=== PATIENT | male | born 1970 | race Caucasian/White ===

== ENCOUNTER 2016-10-02 04:01 | Emergency (ER) | payer SELFPAY ==
[~2016-10-02] VITALS: Ht 182.9 cm; Wt 84.1 kg
[2016-10-02 04:07] VITALS: BP 131/97; PULSE 103; RESP 18; O2SAT 96
--- NOTE | 2016-10-02 04:27 | ED.REPORT ---
HPI-Dyspnea / Wheezing Date of Service Oct 02, 2016 ED Provider: Henry Goldberg MD Patient is a 46 year old male who presents to the ED after he awoke from sleep with shortness of breath just prior to arrival. The patient states that he subsequently had a panic attack, due to the fact that he could not breathe. Patient reports associated substernal chest pain, which radiates to his back and neck. Patient rates his pain at 4/10 on arrival to the ED. He also reports myalgias, dizziness, diaphoresis, hot flashes, and chills. Patient states that he has generally felt unwell for the past day and that he slept more than usual. He reports a history of borderline hypertension but denies hyperlipidemia or diabetes mellitus. Nursing Notes Stated Complaint: SHORT OF BREATH Chief Complaint: Respiratory Complaints Nursing Notes Reviewed: Yes Allergies: Coded Allergies: No Known Allergies (Unverified , 10/02/16) General Time Seen by MD: 04:22 Chief Complaint Shortness of breath Hx Obtained From: Patient Arrived By: Walk-in Sudden in Onset?: No Onset Occurred: Just prior to arrival Symptom Duration: Since onset Location: : Substernal Quality: Painful Severity: Maximum: Pain level 4 out of 10 Past Medical History Past Medical History Reports: Hypertension (borderline), Denies: Diabetes mellitus, Hyperlipidemia Past Surgical History right shoulder surgery Reports: Back/neck surgery, Carpal tunnel Smoking History Never Smoker Social History Alcohol Use: "Social" Drug Use: THC Other Social History: Good social support, , Local resident Ambulatory Status Independent Review of Systems Review of Systems Note: + felt unwell Constitutional: Reports: Chills, Fever (hot flashes) Respiratory: Reports: Shortness of breath Cardiovascular: Reports: Chest pain Musculoskeletal: Reports: Back pain, Myalgia, Neck pain Skin: Reports Diaphoresis Complete sys rev & neg: except as marked. Neurologic: Reports: Dizziness Physical Exam Initial Vital Signs Vital Signs (First) Date Time Temp Pulse Resp B/P Pulse Ox O2 Delivery O2 Flow Rate FiO2 10/02/16 04:07 36.8 103 18 131/97 96 Room Air Initial VS: Reviewed, Vital signs abnormal Head / Eyes: Atraumatic, Normocephalic, PERRL ENT: Conjunctiva normal, No scleral icterus Abdomen / GI: Soft, Non-tender, No guarding, No rebound, No distention Extremities: Vascular intact, Neuro intact, No swelling, No tenderness Skin: Warm, Dry, No cyanosis Neurologic: Alert, Oriented, Nonfocal Psychiatric: Mood/affect normal, Behavior normal, Normal thought content General/Constitutional: Awake, Alert, No acute distress Neck: Supple, No JVD Respiratory / Chest: Breath sounds NL, Breath sounds = bilat, No respiratory distress, No rales, No rhonchi, No wheezing Cardiovascular: Heart rate NL, Regular rhythm, Heart sounds NL, No murmurs Interpretation & Diagnostics Lab Results Interpretation Result Diagram: 10/02/16 0425 10/02/16 0425 Test 10/02/16 04:25 White Blood Count 7.4th/mm3 (3.8-10.1) Red Blood Count 5.24mil/mm3 (4.40-5.80) Hemoglobin 15.3g/dL (13.8-17.2) Hematocrit 43.7% (41.0-50.0) Mean Corpuscular Volume 83.4fL (81-100) Mean Corpuscular Hemoglobin 29.2pg (27.0-35.0) Mean Corpuscular Hemoglobin Concent 35.0% (32.0-37.0) Red Cell Distribution Width 12.5% (12.3-15.4) Platelet Count 197bil/L (150-400) Neutrophils (%) (Auto) 63.4% (40-74) Lymphocytes (%) (Auto) 20.8% (14-46) Monocytes (%) (Auto) 13.6% (4-12) Eosinophils (%) (Auto) 1.2% (0-5) Basophils (%) (Auto) 0.7% (0-3) D-Dimer < 0.50mg/L FEU (<0.50) Sodium Level 136mEq/L (134-144) Potassium Level 4.0mEq/L (3.5-5.2) Chloride Level 98mEq/L (97-108) Carbon Dioxide Level 26mmol/L (18-29) Blood Urea Nitrogen 12mg/dL (6-24) Creatinine 0.77mg/dL (0.76-1.27) Estimat Glomerular Filtration Rate 115mL/min (>59) Glucose Level 92mg/dL (60-99) Calcium Level 9.4mg/dL (8.5-10.1) Total Bilirubin 0.3mg/dL (0.0-1.2) Aspartate Amino Transf (AST/SGOT) 39U/L (0-50) Alanine Aminotransferase (ALT/SGPT) 92U/L (0-44) Alkaline Phosphatase 131U/L (25-150) Troponin T < 0.010ug/L (0.0-0.011) Pro-B-Type Natriuretic Peptide 15.00pg/mL (0-121) Total Protein 7.2g/dL (6.4-8.4) Albumin 4.1g/dL (3.4-5.0) Hold Barnes Top Tube Received (Received) Lab values outside NL range: no clinical significance. ECG Interpretation ECG Interpretation: Sinus rhythm, Rate 97 ST elevation, probable normal early repol pattern Time: 04:30 Interpreted by: ED physician X-Ray Chest Interpretation Chest Xray Interpretation: Impression: No acute cardiopulmonary process. View: Portable Interpretation / Wet Read by: Wet read ED physician Re-Eval/Medical Decision Med Decision/Clinical Course 46-year-old male with several day history of respiratory symptoms with shortness of breath. Chest x-ray is negative for pneumonia or pneumothorax. D- dimer is negative rate EKG and troponin are negative. Re-Evaluation/Progress : Time of Eval: 06:32 Re-Evaluation/Progress Note: Rechecked the patient. Discussed his lab results, with no acute findings. His chest x-ray and EKG were normal. Will perform orthostatic vital signs prior to discharge. Patient understands and agrees with the plan to be discharged home. Discharge instructions and follow-up discussed. All questions were addressed. Return to the ED warnings given. Counseled Regarding: Diagnosis, Lab results, Need for follow-up, When/why to return to ED Discharge & Departure Impression: Primary Impression: Acute bronchitis Bronchitis organism: unspecified organism Qualified Code: J20.9 - Acute bronchitis, unspecified Disposition: Home Discharge Condition All VS Reviewed: Yes Condition: Stable Patient Instructions: Acute Bronchitis (ED) Additional Instructions: It appears that you have viral bronchitis. There is no evidence of pneumonia, collapsed lung, blood clot in the lung, or other serious lung problem. Heart tests are normal. Rest and hydration. [facility] Attestation Portions of this note were transcribed by Berta Sesay. I, Dr. Goldberg personally performed the history, physical exam and medical decision-making; I reviewed and confirmed the accuracy of the information in the transcribed note. Signed by: Karin Nick, 10/02/2016 0636 copies to: [facility] Howard L MD Oct 02, 2016 04:27 Berta Sesay Oct 02, 2016 04:35
[2016-10-02 04:35] LABS: BASOPHILS % (AUTO) 0.7 % (0-3); EOSINOPHILS % (AUTO) 1.2 % (0-5); MONOCYTES % (AUTO) 13.6 % (4-12); Mean Corpuscular Hemoglobin 29.2 pg (27.0-35.0); Mean Corpuscular Volume 83.4 fL (81-100); NEUTROPHILS % (AUTO) 63.4 % (40-74); Platelet Count 197 bil/L (150-400)
[2016-10-02 05:02] LABS: TROPONIN T < 0.010 ug/L (0.0-0.011)
[2016-10-02] MEDS ORDERED: Ondansetron 2 mg/mL 2 mL Inj IVPUSH PRN (05:05)
[2016-10-02 07:07] VITALS: BP 138/80; PULSE 94; RESP 17; O2SAT 98
--- NOTE | 2016-10-02 09:14 | DRSVH ---
PROCEDURE: X-RAY CHEST ONE VIEW, PORTABLE ([id number]) INDICATIONS: SOB TECHNIQUE: One view of the chest was acquired. COMPARISON: None. FINDINGS: Surgical changes and devices: Cervical spine fixation hardware.. Lungs and pleura: No pleural effusions or pneumothorax. Lungs are clear. Mediastinum: Mediastinal contours appear normal. Heart size is normal. Bones and chest wall: No suspicious bony lesions. Overlying soft tissues appear unremarkable. IMPRESSION: No acute disease Dictated by: Jun Florez M.D. on 10/02/2016 at 9:11 Approved by: Jun Florez M.D. on 10/02/2016 at 9:13
== END 2016-10-02 06:42 | disposition home or self-care (01) ==
LOC: SED 04:01
DX: J20.9 Acute bronchitis, unspecified (principal); I10 Essential (primary) hypertension; F12.10 Cannabis abuse, uncomplicated; Z87.891 Personal history of nicotine dependence
CPT/HCPCS: 36415; 71010; 80053; 83880; 84484; 85025; 85378; 93005; 96374; 96375; 99285; J1885; J2405